=== PATIENT | female | born 1940 | race Caucasian/White ===

== ENCOUNTER 2018-05-17 05:32 | Inpatient (IN) | payer MEDICARE ==
[2018-05-16 09:21] LABS: BASOPHILS # (AUTO) 0.1 (0.0-0.1); EOSINOPHILS % 0.2 % (0.0-6.0); HEMATOCRIT 34.8 % (34.2-44.1); HEMOGLOBIN 11.9 g/dL (12.0-16.0); LYMPHOCYTES # (AUTO) 1.7 (1.0-3.2); LYMPHOCYTES % 29.8 % (18.0-39.1); MEAN CORPUSCULAR HEMOGLOBIN 30.7 pg (28-32); MEAN CORPUSCULAR HGB CONC 34.2 g/dL (31-35); MEAN CORPUSCULAR VOLUME 89.9 fL (81-99); MONOCYTES # (AUTO) 0.8 (0.2-0.8); MONOCYTES % 13.1 % (4.4-11.3); NEUTROPHILS # (AUTO) 3.2 (2.1-6.9); NEUTROPHILS % 55.6 % (38.7-80.0); PLATELET COUNT 212 x10e3/uL (140-360); RED BLOOD COUNT 3.87 x10e6/uL (3.6-5.1); RED CELL DISTRIBUTION WIDTH 13.2 % (11.7-14.4)
[2018-05-16 09:37] LABS: ANION GAP 15.1 mmol/L (8-16); CALCIUM 9.7 mg/dL (8.4-10.2); CREATININE, SERUM 0.91 mg/dL (0.57-1.11); POTASSIUM 4.1 mmol/L (3.5-5.1)
[~2018-05-17] VITALS: Ht 157.5 cm; Wt 60.8 kg
[~2018-05-17 05:32] MED LIST: ACTEMRA80 MG/4 ML SC; ATORVASTATIN CA20 MG PO; FERROUS SULFAT325 M1 PO; FOLIC ACID1 MG PO; GABAPENTIN300 MG PO; LEVOTHYROXINE112 MCG PO; NORCO 10-325 T1 EACH PO; POTASSIUM CHLO10 ME1 PO
[2018-05-17] MEDS ORDERED: ROPIVACAINE 246.25 MG, EPINEPHRINE HCL 1:1000 0.5 MG, CLONIDINE HCL 0.08 MG, KETOROLAC ... IV ONE ×5 (06:30)
[2018-05-17] MEDS ORDERED: DEXAMETHASONE SOD PHOS 10 MG/1 ML VIAL ONE (06:43)
[2018-05-17] MEDS ORDERED: CEFAZOLIN SOD 2 GM/D5W 50ML 50 ML IV ONE (06:43)
[2018-05-17] MEDS ORDERED: CELECOXIB 200 MG CAP ONE (06:43)
[2018-05-17] MEDS ORDERED: GABAPENTIN 300 MG CAP ONE (06:43)
[2018-05-17] MEDS ORDERED: MUPIROCIN 2% OINT 22 GM TUBE ONE (08:57)
[2018-05-17] MEDS ORDERED: BACITRACIN 50,000 UNIT VIAL ONE (08:57)
[2018-05-17] MEDS ORDERED: TRANEXAMIC ACID 1,000 MG/10 ML ML ONE (08:57)
[2018-05-17] MEDS ORDERED: BUPIVACAINE 7.5MG/ML /DEXTROSE 82.5MG/ML 2 ML AMP INJ ONE (09:05)
[2018-05-17] MEDS: SODIUM CHLORIDE 0.9% 1000ML 1,000 ML IV SCH ×2 (10:59→21:59)
[2018-05-17] MEDS ORDERED: ONDANSETRON HCL INJ 2 MG/ML VIAL IV PRN (11:00)
[2018-05-17] MEDS ORDERED: HYDROCODONE/APAP 5MG-325MG TAB PO PRN (11:00)
[2018-05-17] MEDS ORDERED: PROMETHAZINE HCL (IM) 25 MG/ML VIAL INJ PRN (11:00)
[2018-05-17] MEDS ORDERED: KETOROLAC TROMETHAMINE 30 MG/ML VIAL IV PRN (11:00)
[2018-05-17] MEDS ORDERED: ACETAMINOPHEN 650 MG SUPP PR PRN (11:00)
[2018-05-17] MEDS ORDERED: DOCUSATE SODIUM 100 MG CAP PO PRN (11:00)
[2018-05-17] MEDS ORDERED: ZOLPIDEM TARTRATE 5 MG TAB PO PRN (11:00)
[2018-05-17] MEDS ORDERED: DIPHENHYDRAMINE HCL INJ 50 MG/ML VIAL IM/IV PRN (11:00)
--- NOTE | 2018-05-17 12:02 | Diagnostic Imaging Report ---
EXAM: AP radiograph of the pelvis. INDICATION: Post operative COMPARISON: None FINDINGS: Status post right total hip arthroplasty. The hardware appears intact. Alignment is unremarkable. No evidence of fracture. There are postoperative changes including subcutaneous gas and skin marco. Mild left hip degenerative changes are present. IMPRESSION: Postoperative changes status post right total hip arthroplasty as above. Signed by: Dr. Alex Winter MD on 05/17/2018 11:59 AM
--- NOTE | 2018-05-17 12:14 | Operative Report ---
DATE OF PROCEDURE: May 17, 2018 BOOT AND SADDLE REPAIR PERSON: Kash Schafer PA-C The patient was brought to the operating room for induction of anesthesia. Throughout this case, my PA's assistance was necessary for retraction of soft tissue and positioning of the extremity. This allows for efficient and technically successful execution of the operation and is considered medically necessary. PREOPERATIVE DIAGNOSIS: Rheumatoid arthritis, right hip. POSTOPERATIVE DIAGNOSIS: Rheumatoid arthritis, right hip. PROCEDURE: Right total hip arthroplasty. INDICATIONS: The patient is a 77-year-old lady with severe rheumatoid arthritis of her right hip. She has failed conservative management and would like to proceed with a right total hip replacement. We have reviewed the procedure and the associated risks and benefits. She is off her rheumatologic medications. She states she understands and wishes to proceed. DESCRIPTION OF PROCEDURE: The patient was brought to the operating room and given a spinal anesthetic. She received prophylactic antibiotics and tranexamic acid. She was positioned in the left lateral decubitus position. Her right hip was prepped and draped in a sterile manner. A preoperative time out was performed. A posterior approach with a limited incision was made to the right hip. Care was taken to avoid injury to the sciatic nerve. Hemostasis was obtained with electrocautery. A Charnley self-retaining retractor was placed. The posterior capsule and short external rotators were released. A large blood-tinged effusion was evacuated from the hip joint. The hip was dislocated and an oscillating saw was used to resect the femoral head. Acetabular retractors were carefully placed. Additional soft tissue releases were necessary. The acetabulum was then sequentially reamed to 51 mm. This accomplished some bleeding cancellous bone. A Jeremy Biomet 52 mm outer diameter OsseoTi socket was then impacted into place after thoroughly irrigating the wound. A nice fixation was obtained. Fixation was augmented with a single 20-mm screw placed into the ilium. A highly cross-linked polyethylene liner with a 36-mm inner diameter was then impacted into place. Care was taken to make sure that there was no evidence of soft tissue interposition. A portion of a 100-mL premixed pericapsular NADEEM injection was placed around the acetabular tissue. Attention was then directed towards the proximal femur. A moist lap sponge was placed into the socket. Box-cutting osteotome and taper-pin reamer were used to establish entry to the femoral canal. The Jeremy Biomet Taperloc broaches were then impacted into place. A #11 stem was necessary to have good canal fill and rotational stability. Trial reductions were performed. A standard 36 mm head was felt to provide appropriate congregational of limb length and stability. The trial implants were removed. The hip was further irrigated extensively with a shower-tip pulsatile lavage. The remainder of the periarticular injection was placed into the soft tissue. The implants were seated and a final reduction was performed. A ceramic 36 mm diameter head was used. The posterior capsule was repaired with interrupted number 2 Ethibond. The tensor fascia and gluteal fascia were closed with number 2 Ethibond. The skin was closed with subcuticular Vicryl and marco. A sterile bandage was applied. The patient was returned to the supine position. She was transported to the recovery room in stable condition. Blood loss was about 50 mL and all needle and sponge counts were correct. Job#: [id number] [place]
--- NOTE | 2018-05-17 12:18 | Diagnostic Imaging Report ---
PROCEDURE: Frontal and lateral views of the chest. COMPARISON: None. INDICATIONS: PREOPERATIVE CHEST XRAY FOR HIP SURGERY FINDINGS: Lines/tubes: None. Lungs: The lungs are well inflated and clear. There is no evidence of pneumonia or pulmonary edema. Pleura: There is no pleural effusion or pneumothorax. Heart and mediastinum: The cardiomediastinal silhouette is unremarkable. Bones: No acute bony abnormality. Status post median sternotomy. Broken inferior sternal wire is noted. Partially seen cervical spine fixation hardware. IMPRESSION: No acute cardiopulmonary disease. Status post median sternotomy with broken inferior most sternal wire. Comparison with prior radiographs for any interval change would be helpful. Dictated by: NORI WHITING M.D. on 05/16/2018 at 10:36 Electronically approved by: NORI WHITING M.D. on 05/16/2018 at 10:36
[2018-05-17 14:00] VITALS: BP 104/41
[2018-05-17] MEDS ORDERED: CEFAZOLIN SOD 1 GM/D5W 50ML 50 ML IV SCH (14:00)
[2018-05-17] MEDS: ACETAMINOPHEN 1000 MG/100 ML IV SCH ×3 (14:39→23:59)
[2018-05-17 15:00] VITALS: BP 104/41
[2018-05-17] MEDS ORDERED: MIDAZOLAM HCL 2 MG/2 ML VIAL ONE (15:20)
[2018-05-17] MEDS ORDERED: FENTANYL CITRATE/PF 100MCG/2 ML INJ ONE (15:20)
[2018-05-17 16:14] VITALS: BP 125/60
[2018-05-17] MEDS: CELECOXIB 100 MG CAP PO SCH (17:26)
[2018-05-17] MEDS: ASPIRIN 325 MG TAB PO SCH (17:26)
[2018-05-17] MEDS: CEFAZOLIN SOD 1 GM VIAL IV SCH (17:26)
[2018-05-17] MEDS: HYDROCODONE/APAP 7.5MG-325MG 1 EA TAB PO PRN (18:09)
[2018-05-17 19:45] VITALS: BP 133/63
[2018-05-17 20:00] VITALS: BP 133/63
[2018-05-18] VITALS: BP 135/59
[2018-05-18] MEDS: CEFAZOLIN SOD 1 GM VIAL IV SCH ×2 (00:52→08:17)
[2018-05-18 04:00] VITALS: BP 140/62
--- NOTE | 2018-05-18 05:24 | Consultation ---
DATE OF CONSULTATION: AUDIO CUTTING IN AND OUT IN MULTIPLE PORTIONS OF THE REPORT REASON FOR CONSULTATION: Right hip pain. HISTORY OF PRESENT ILLNESS: Patient is status post right hip arthroplasty for end-stage osteoarthritis. He is doing well postoperatively. She states her pain is well controlled. Denies any fever, chills, nausea, vomiting, headaches, shortness of breath, dizziness on review of systems. PAST MEDICAL HISTORY: Significant for hypertension, diabetes, coronary artery disease. PAST SURGICAL HISTORY: CABG. MEDICATIONS: See OCT. ALLERGIES: NONE. SOCIAL: Nonsmoker, nondrinker. FAMILY HISTORY: Noncontributory. PHYSICAL EXAMINATION VITALS: Blood pressure 136/73, pulse 74, sats 98%. GENERAL: In no apparent distress, lying in bed. NECK: Supple. CARDIOVASCULAR: Regular rate and rhythm. LUNGS: Clear to auscultation bilaterally. ABDOMEN: Good bowel sounds. Soft, nontender. EXTREMITIES: No clubbing, cyanosis. NEUROLOGIC: Nonfocal. ASSESSMENT AND PLAN 1. Right hip pain. Continue with physical therapy . 2. Diabetes. Continue with current monitoring. 3. History of coronary artery disease. Continue with . 4. Hypertension. 5. 6. Anemia . Please see hospital chart for full details. Job#: [id number] CQ
[2018-05-18 06:01] LABS: HEMATOCRIT 28.7 % (34.2-44.1); HEMOGLOBIN 9.8 g/dL (12.0-16.0)
[2018-05-18] MEDS: SODIUM CHLORIDE 0.9% 1000ML 1,000 ML IV SCH (06:05)
[2018-05-18] MEDS: ACETAMINOPHEN 1000 MG/100 ML IV SCH (06:05)
[2018-05-18 08:05] VITALS: BP 149/65
[2018-05-18 08:17] VITALS: BP 149/65
[2018-05-18] MEDS: HYDROCODONE/APAP 7.5MG-325MG 1 EA TAB PO PRN ×2 (08:17→12:27)
[2018-05-18] MEDS: CELECOXIB 100 MG CAP PO SCH (08:17)
[2018-05-18] MEDS: ASPIRIN 325 MG TAB PO SCH (08:17)
[2018-05-18] MEDS ORDERED: ASPIRIN325 MG PO (09:10)
[2018-05-18] MEDS ORDERED: ACETAMINOPHEN 1000 MG/100 ML IV PRN (11:00)
[2018-05-18 12:08] VITALS: BP 138/20
[2018-05-18] MEDS ORDERED: CELECOXIB 200 MG CAP PO SCH (17:00)
== END 2018-05-18 12:45 | disposition home health service (06) | DRG 470 ==
LOC: OR 05:32 → PACU V 11:01 → MED/SURG 13:41
PROVIDERS: ADMIT Specialist; ATTEND Specialist
PROC: 0SR906A Replacement of Right Hip Joint with Oxidized Zirconium on Polyethylene Synthetic Substitute, Uncemented, Open Approach (ICD-10-PCS; principal; 2018-05-17 08:30)
DX: M06.851 Other specified rheumatoid arthritis, right hip (principal); M17.11 Unilateral primary osteoarthritis, right knee; M47.9 Spondylosis, unspecified; Z95.1 Presence of aortocoronary bypass graft; E78.5 Hyperlipidemia, unspecified; E11.9 Type 2 diabetes mellitus without complications; I25.10 Atherosclerotic heart disease of native coronary artery without angina pectoris; D64.9 Anemia, unspecified
CPT/HCPCS: 36415; 71046; 72170; 80048; 82948; 85014; 85018; 85025; 86850; 86900; 86920; 93005; C1713; J0171; J0690; J1100; J1200; J1885; J2250; J2795; J7030